=== PATIENT | female | born 1950 | race Caucasian/White ===

== ENCOUNTER 2021-10-30 07:01 | Outpatient (CLI) | payer MEDICARE | END 2021-10-30 07:02 | disposition critical access hospital (66) | LOC: EMS 07:01 | DX: R53.1 Weakness (principal); R27.9 Unspecified lack of coordination; I10 Essential (primary) hypertension | CPT/HCPCS: A0425; A0427 ==

== ENCOUNTER 2021-10-30 07:15 | Observation (INO) | payer MEDICARE, OTHER ==
[2021-10-30] MEDS ORDERED: SODIUM CHLORIDE 0.9% 1,000 ML IV STA (07:23)
--- NOTE | 2021-10-30 07:24 | ED Physician Documentation ---
PD HPI FOCAL NEURO - Stated complaint Stated Complaint: CODE STROKE - History obtained from History obtained from: Patient, EMS - History of Present Illness Timing - onset: How many hours ago (06/22), Last night (2 am She woke up to go to the bathroom and noted some feeling of weakness in the right arm and leg. She went back to sleep and it was still present upon awakening this morning.) Timing - duration: Hours (06/22) Timing - details: Abrupt onset, Still present Severity of deficit: Mild Weakness: Arm, Leg, Right. No: Face Numbness: No: Face, Arm, Leg Associated symptoms: No: Headache, Nausea / vomiting, Fall, Head injury Contributing factors: negative: Anticoagulated, Atrial fibrillation Baseline status: positive: A&OX3, ambulatory, indep Similar symptoms before: Has not had sx before Recently seen: Not recently seen Review of Systems Constitutional: denies: Fever, Chills Nose: denies: Rhinorrhea / runny nose, Congestion Throat: denies: Sore throat Cardiac: denies: Chest pain / pressure, Palpitations, Pedal edema, Calf pain Respiratory: denies: Cough, Wheezing GI: denies: Abdominal Pain, Nausea, Vomiting Musculoskeletal: denies: Neck pain, Back pain Neurologic: reports: Focal weakness, Altered mental status (somewhat slow to answer questions per family.). denies: Generalized weakness, Numbness, Confused, Headache, Head injury PD PAST MEDICAL HISTORY - Past Medical History Cardiovascular: Hypertension (but no current medications) Respiratory: None Neuro: None Endocrine/Autoimmune: None Musculoskeletal: None - Present Medications Home Medications: Ambulatory Orders Medication Instructions Recorded Confirmed No Known Home Medications 10/30/21 10/30/21 - Allergies Allergies/Adverse Reactions: Allergies Allergy/AdvReac Type Severity Reaction Status Date / Time No Known Drug Allergies Allergy Verified 10/30/21 07:24 PD ED PE NORMAL - Vitals Vital signs reviewed: Yes - General General: Alert and oriented X 3, No acute distress, Well developed/nourished - HEENT HEENT: PERRL, EOMI, Moist mucous membranes, Pharynx benign - Neck Neck: Supple, no meningeal sign, No adenopathy, No bruit - Cardiac Cardiac: RRR (mild tachycardia), No murmur - Respiratory Respiratory: Clear bilaterally - Abdomen Abdomen: Soft, Non tender - Derm Derm: Normal color, Warm and dry - Extremities Extremities: No tenderness to palpate, Normal ROM s pain, No edema, No calf tenderness / cord - Neuro Neuro: Alert and oriented X 3, 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, No sensory deficit, Normal speech, Other (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.) Eye Opening: Spontaneous Motor: Obeys Commands Verbal: Oriented GCS Score: 15 NIHSS - Level of Consciousness Level of consciousness: (0) Alert, Keenly responsive LOC Questions: (0) Answers both Q's correct LOC Commands: (0) Performs both correctly - Gaze Best Gaze: (0) Normal - Visual Visual: (0) No loss - Facial Palsy Facial Palsy: (0) Normal, symmetrical movement - Motor Arms (both separate) Motor Arm (right): (1) Drift (very slight) Motor Arm (left): (0) No drift - Motor Legs (both separate) Motor Leg (right): (1) Drift (very slight) Motor Leg (left): (0) No drift - Limb Ataxia Limb Ataxia: (0) Absent - Sensory Sensory: (0) Normal - Best Language Best Language: (0) No aphasia - Dysarthria Dysarthria: (0) Normal - Extinction and Inattention (formally neg Extinction and inattention: (0) No abnormality - Total Score/Results Total Score/Result: 2 Results - Vitals Vitals: Vital Signs - 24 hr 10/30/21 10/30/21 10/30/21 07:19 07:36 08:22 Temperature 36.4 C L Heart Rate 110 H 93 107 H Respiratory 16 15 23 Rate Blood Pressure 165/112 H 159/63 H 153/74 H O2 Saturation 99 97 98 10/30/21 10/30/21 10/30/21 09:08 09:30 10:00 Temperature Heart Rate 101 H 93 96 Respiratory 20 14 17 Rate Blood Pressure 175/79 H 153/65 H 156/76 H O2 Saturation 97 97 96 10/30/21 10/30/21 10/30/21 10:30 11:00 11:30 Temperature Heart Rate 101 H 102 H 106 H Respiratory 20 14 13 Rate Blood Pressure 157/71 H 168/72 H 149/83 H O2 Saturation 98 96 97 10/30/21 10/30/21 10/30/21 12:30 13:00 13:30 Temperature Heart Rate 99 98 100 Respiratory 16 Rate Blood Pressure 148/90 H 161/88 H 151/91 H O2 Saturation 97 95 94 Oxygen O2 Source Room air - EKG (time done) 07:45 Rate: Rate (enter#) (93) Rhythm: NSR Intervals: LBBB QRS: LVH - Labs Labs: Laboratory Tests 10/30/21 10/30/21 10/30/21 07:23 07:23 07:23 WBC 7.8 RBC 4.52 Hgb 14.3 Hct 42.1 MCV 93.1 MCH 31.6 H MCHC 34.0 RDW 13.1 Plt Count 259 MPV 8.2 Neut # (Auto) 4.8 Lymph # (Auto) 1.8 [place] # (Auto) 0.8 Eos # (Auto) 0.3 Baso # (Auto) 0.1 Absolute Nucleated RBC 0.00 Nucleated RBC % 0.0 PT 11.3 INR 1.0 Sodium 136 Potassium 4.1 Chloride 102 Carbon Dioxide 25 Anion Gap 9.0 BUN 30 H Creatinine 0.6 Estimated GFR (MDRD) 99 Glucose 110 H Calcium 9.9 Magnesium 2.1 Total Bilirubin 0.7 AST 31 ALT 31 Alkaline Phosphatase 56 Total Protein 7.6 Albumin 4.3 Globulin 3.3 Albumin/Globulin Ratio 1.3 Lipase 36 - Rads (name of study) head/neck angio Radiology: Prelim report reviewed (no acute abnormality. Less than 50% stenoses at carotids. ), See rad report brain MRI Radiology: Prelim report reviewed (small lacunar infarct with edema left caudate nucleus in deep periventricular white matter. ), See rad report PD MEDICAL DECISION MAKING - ED course Complexity details: reviewed results (CT and CT angios of the head and neck are without any acute obvious abnormality nor stenoses. Concern would be for worse mall stroke versus stroke mimic. She is out of the timeframe for thrombolytics and does not have a large vessel occlusion. This point I would get an MRI brain to better eval.), considered differential (Onset of a feeling of right-sided weakness arm and leg. Does not demonstrate significant weakness but very subtle. Slightly slow answering questions but no dysarthria or dysphonia per se. Very minimal symptoms.), d/w patient ED course: Brain MRI does show a small lacunar infarct in the left deep periventricular white matter. No bleed. Reevaluation shows still minimal drift or weakness on the right arm and leg. However we have not assessed gait or swallow. She is able to speak clearly and no facial droop. Concern would be for worsening symptoms given some mild edema on MRI. I talked with the hospitalist who did agree to have the patient in observation on telemetry and also watching blood pressure. Departure - Departure Disposition: ED Place in Observation Clinical Impression: Acute right-sided weakness, Lacunar infarct, acute, Cerebrovascular accident (CVA) Condition: Stable Record reviewed to determine appropriate education?: Yes
[2021-10-30 07:33] LABS: BASOPHILS # (AUTO) 0.1 10^3/uL (0.0-0.1); BASOPHILS % (AUTO) 0.8 %; EOSINOPHILS # (AUTO) 0.3 10^3/uL (0.0-0.7); EOSINOPHILS % (AUTO) 3.7 %; HCT - HEMATOCRIT 42.1 % (37.0-47.0); HGB - HEMOGLOBIN 14.3 g/dL (12.0-16.0); LYMPHOCYTES # (AUTO) 1.8 10^3/uL (1.5-3.5); LYMPHOCYTES % (AUTO) 22.9 %; MEAN CORPUSCULAR HEMOGLOBIN 31.6 pg (27.0-31.0); MEAN CORPUSCULAR VOLUME 93.1 fL (81.0-99.0); MEAN PLATELET VOLUME 8.2 fL (7.9-10.8); MONOCYTES # (AUTO) 0.8 10^3/uL (0.0-1.0); MONOCYTES % (AUTO) 10.4 %; NEUTROPHILS # (AUTO) 4.8 10^3/uL (1.5-6.6); NEUTROPHILS % (AUTO) 61.9 %; PLT - PLATELET COUNT 259 10^3/uL (130-450); RED BLOOD COUNT 4.52 10^6/uL (4.20-5.40); RED CELL DISTRIBUTION WIDTH 13.1 % (12.0-15.0); WHITE BLOOD COUNT 7.8 x10^3/uL (4.8-10.8)
[2021-10-30 07:43] LABS: ALBUMIN 4.3 g/dL (3.2-5.5); ALBUMIN/GLOBULIN RATIO 1.3 (1.0-2.2); BILIRUBIN,TOTAL 0.7 mg/dL (0.2-1.0); CALCIUM 9.9 mg/dL (8.5-10.3); CREATININE 0.6 mg/dL (0.4-1.0); MAGNESIUM 2.1 mg/dL (1.7-2.8); POTASSIUM 4.1 mmol/L (3.5-5.0); TOTAL PROTEIN 7.6 g/dL (6.7-8.2)
[2021-10-30] MEDS ORDERED: IOPAMIDOL-300 100 ML VIAL IVP ONE (07:43)
[2021-10-30 07:44] LABS: PT - PROTHROMBIN TIME 11.3 secs (9.9-12.6)
--- NOTE | 2021-10-30 07:50 | CT Report ---
PROCEDURE: Head W/O Stroke Protocol INDICATIONS: right side weakness TECHNIQUE: Noncontrast 4.5 mm thick angled axial sections acquired from the foramen magnum to the vertex, with c oronal reformats. For radiation dose reduction, the following was used: automated exposure control, adjustment of mA and/or kV according to patient size. COMPARISON: FINDINGS: Image quality: Excellent. CSF spaces: Basal cisterns are patent. No extra-axial fluid collections. Ventricles are normal in size and shape. Brain: No midline shift. No intracranial masses or hemorrhage. Lara-white matter interface is norm al. Skull and face: Calvarium and visualized facial bones are intact, without suspicious lesions. Sinuses: Visualized sinuses and mastoids are clear. IMPRESSION: No evidence acute intracranial process. Above discussed with René, the healthcare coordinator working with FERNANDO NGUYEN at the time of di ctation on 10/30/2021 at 0745 hours. This study fulfills neurological imaging criteria for inclusion or exclusion of acute stroke therapie s based on available published neurological imaging guidelines. Reviewed by: Srikanth Jensen MD on 10/30/2021 7:48 AM PDT Approved by: Srikanth Jensne MD on 10/30/2021 7:48 AM PDT Station ID: [id number]
--- NOTE | 2021-10-30 08:02 | CT Report ---
PROCEDURE: ANGIO HEAD W/WO INDICATIONS: right side weakness CONTRAST: IV CONTRAST: Isovue 300 ml: 80 PO CONTRAST: *NO PO CONTRAST TECHNIQUE: Precontrast 4.5 mm thick angled axial sections acquired from the foramen magnum to the vertex. Afte r the administration of intravenous contrast, 1 mm thick sections acquired through the [place] of [place] is. Postcontrast 4.5 mm thick sections then re-acquired from the foramen magnum to the vertex. 3-di mensional vhwogdy-hnratspga-sfvcauhzzd (MIP) and/or volume rendering reformats were acquired of the c entral intracranial vasculature. For radiation dose reduction, the following was used: automated ex posure control, adjustment of mA and/or kV according to patient size. COMPARISON: CT head 10/30/2021. FINDINGS: Image quality: Excellent. Anterior circulation: Intracranial internal carotid arteries are normal in size and flow. The flow within the paired anterior cerebral arteries is normal and symmetric. The flow within the middle cer ebral arteries is normal and symmetric. The anterior communicating artery is seen. No aneurysms are seen. Posterior circulation: Visualized portions of the vertebral arteries demonstrate normal caliber, and join to form a normal appearing basilar artery. Flow within the posterior cerebral arteries is norm al and symmetric. No aneurysms are seen. Dural sinuses demonstrate normal postcontrast enhancement. CSF spaces: Ventricles are normal in size and shape. Basal cisterns are patent. No extra-axial flu id collections. Brain: No midline shift. No intracranial bleeds or masses. Lara-white matter interface appears int act. Skull and face: Calvarium and facial bones appear intact, without suspicious lesions. Sinuses: Visualized sinuses and mastoids are clear. IMPRESSION: 1. No acute intracranial disease process. 2. No large vessel occlusion, vascular stenosis, vascular dissection or aneurysm. Reviewed by: Jailene Cadena MD, PhD on 10/30/2021 8:01 AM PDT Approved by: Jailene Cadena MD, PhD on 10/30/2021 8:01 AM PDT Station ID: [id number]
--- NOTE | 2021-10-30 08:11 | CT Report ---
PROCEDURE: ANGIO NECK W INDICATIONS: right side weakness CONTRAST: IV CONTRAST: Isovue 300 ml: 80 PO CONTRAST: *NO PO CONTRAST TECHNIQUE: After the administration of intravenous contrast, 1.5 mm axial sections acquired from the aortic arch to the [place] of [place]. Coronal 3-D maximum intensity projection (MIP) and/or volume rendering ref ormats were then performed. For radiation dose reduction, the following was used: automated exposur e control, adjustment of mA and/or kV according to patient size. COMPARISON: None. FINDINGS: Image quality: Excellent. Carotid system: The great vessels demonstrate a conventional anatomy as they arise from the aortic a [facility]. The origins of the common carotid arteries appear patent. The common carotid arteries demonstr ate normal calibers. Common carotid arteries course proximally projecting the retropharyngeal space. Atherosclerotic calcifications noted in the origins of the internal carotid arteries which causes les s than 50% stenosis of the vessels. Posterior circulation: The origins of the vertebral arteries appear patent. Left vertebral artery do minance noted. The more superior portions of the vertebral arteries demonstrate normal course and sangeeta iber. They join to form a normal appearing basilar artery. Soft tissues: Visualized neck soft tissues demonstrate no suspicious abnormalities. The thyroid is normal in size and there are no incidental findings. Biapical lung pleural-parenchymal scarring. Bones: No suspicious bony lesions. Spine degenerative disc disease and facet arthropathy are noted. Visualized cervical spine appears normally aligned. IMPRESSION: 1. Less than 50% stenosis of the origins of the internal carotid arteries. 2. Vertebral arteries are fully patent. The estimate of stenosis included in the report of the imaging study was calculated using the NASCET method Reviewed by: Jailene Cadena MD, PhD on 10/30/2021 8:09 AM PDT Approved by: Jailene Cadena MD, PhD on 10/30/2021 8:09 AM PDT Station ID: [id number]
--- NOTE | 2021-10-30 12:52 | MRI Report ---
PROCEDURE: Brain W/O INDICATIONS: feeling right sided weakness TECHNIQUE: Noncontrast axial T1 spin echo, axial T2 fast spin echo, sagittal and axial FLAIR, coronal T2 fast sp in echo, axial gradient echo, axial diffusion and ADC through the brain. COMPARISON: None. FINDINGS: Image quality: Excellent. CSF Spaces: Basal cisterns are patent. No extra-axial fluid collections. Ventricles are normal in size and shape. Brain: No intracranial masses or hemorrhage. Lara/white matter interface is normal. Brainstem appe ars normal. Diffusion-weighted images demonstrate acute lacunar infarction centered in the left periv entricular deep white matter extending to the body of the left caudate. There is subtle associated cy totoxic edema. No mass effect on the lateral ventricle. No other areas of acute infarct. Age-related volume loss and mild small vessel ischemic change.. No chronic ischemic insults. Normal intravascul ar flow voids are present. Skull and face: Calvarium has normal marrow signal. Orbits appear normal. Sinuses: Sinuses and mastoids are clear. IMPRESSION: 1. Small acute lacunar infarction involving the left periventricular deep white matter extending body of the left caudate. Very early subtle associated cytotoxic edema. 2. Age-related volume loss and mild small vessel ischemic change. Reviewed by: Srikanth Jensen MD on 10/30/2021 12:50 PM PDT Approved by: Srikanth Jensen MD on 10/30/2021 12:50 PM PDT Station ID: [id number]
[2021-10-30] MEDS ORDERED: ASPIRIN CHEW 81 MG TABLET PO STA (13:28)
[2021-10-30] MEDS ORDERED: SODIUM CHLORIDE FLUSH 0.9% 10 ML SYRINGE IVP PRN (13:49)
[2021-10-30] MEDS ORDERED: ACETAMINOPHEN 325 MG TABLET PO PRN (13:49)
[2021-10-30] MEDS ORDERED: ONDANSETRON 4 MG/2 ML VIAL IVP PRN (13:49)
--- NOTE | 2021-10-30 13:55 | HISTORY & PHYSICAL EXAMINATION ---
Chief Complaint - Chief Complaint Chief Complaint: right side weakness History of Present Illness - Admitted From Admitted From:: medical floor - History Obtained From Records Reviewed: [employer], and ER notes History obtained from: pt Exam Limitations: no - History of Present Illness HPI Comment/Other: This is a 71-years old female with a past medical history significantly on hypertension without medications at home, who present ER complain of right sise weakness. Pt reports she woke up at 0200, she was feeling weaker on the right side. she report she walks slower than usually, feel weakness on upper extremity, and slow and mild slurred speech as well. Pt denies vision changes, or headache. she report she has no issue for swallowing. She denies chest pain, shortness of breath as well. CT of head, CTA of head and neck reveals unremarkable for acute process. MRI of brain show Small acute lacunar infarction involving the left periventricular deep white matter extending body of left caudate, very early subtle associated cytotoxic edema. Routine laboratory tests that show unremarkable. Given pt's above medical conditions, medical team was consulted for admission Discussed the care goal with the patient, patient hope to have DNR/DNI History - Family & Social History Family History: Mother: , Father: Family History Comment/Other: Patient report she was unknow about her father medical history, he at age 75. 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 denies: Fever, Chills - Eyes Eyes: denies: Pain, Blurred vision, Field loss, Vision loss, Dipolpia - Ears, Nose & Throat Ears, Nose & Throat: denies: Ear pain - Cardiovascular Cariovascular: denies: Chest pain, Exertional dyspnea, Decr. exercise tolerance - Respiratory Respiratory: denies: Cough, SOB at rest, SOB with exertion - Gastrointestinal Gastrointestinal: denies: Abdominal pain, Diarrhea, Nausea, Vomiting - Genitourinary Genitourinary: denies: Dysuria - Musculoskeletal Musculoskeletal: denies: Muscle pain - Neurological Neurological: reports: Focal weakness, Abnormal gait, Slurred speech. denies: Headache, Dizziness, Numbness, Seizures Prior Level of Functionality: Independent at home Exam - Vital Signs Vital Signs: Vital Signs x48h Temp Pulse Resp BP Pulse Ox 10/30/21 13:00 98 161/88 H 95 10/30/21 12:30 99 148/90 H 97 10/30/21 11:30 106 H 13 149/83 H 97 10/30/21 11:00 102 H 14 168/72 H 96 10/30/21 10:30 101 H 20 157/71 H 98 10/30/21 10:00 96 17 156/76 H 96 10/30/21 09:30 93 14 153/65 H 97 10/30/21 09:08 101 H 20 175/79 H 97 10/30/21 08:22 107 H 23 153/74 H 98 10/30/21 07:36 93 15 159/63 H 97 10/30/21 07:19 36.4 C L 110 H 16 165/112 H 99 - Physical Exam General Appearance: positive: No acute distress, Alert. negative: Lethargic Eyes Bilateral: positive: Normal inspection, No lid inflammation ENT: positive: ENT inspection nml, No signs of dehydration. negative: Purulent nasal drainage Neck: positive: Nml inspection, Trachea midline. negative: Tracheal deviation Respiratory: positive: Chest non-tender, No respiratory distress, Breath sounds nml. negative: Wheezes, Rales Cardiovascular: positive: Regular rate & rhythm. negative: Tachycardia, Lb cardia, Systolic murmur Peripheral Pulses: positive: 2+ Abdomen: positive: Non-tender, Nml bowel sounds, No distention. negative: Tenderness Back: positive: Nml inspection Skin: positive: Color nml, Warm, Dry. negative: Cyanosis Extremities: positive: Non-tender, Nml appearance Neurologic/Psychiatric: positive: Oriented x3, Sensation nml, Weakness, Slurred/abnml speech. negative: Sensory loss, Facial droop, Depressed mood/affect Sepsis Event Note (H) - Evaluation Current Stage of Sepsis: Ruled out Conclusion/Plan - Problem List (1) Cerebrovascular accident (CVA) Conclusion/Plan: pt present mild right side extremities weakness and mild to moderate slurred speech. MRI of brain reveal Small acute lacunar infarction involving the left periventricular deep white matter extending body of left caudate, very early subtle associated cytotoxic edema. pt has hx of HTN but without medication control. Plan: order lipid panel, ER already give pt Aspirin, we will continue Aspirin, add Lipitor. hold BP medication for pt now and let her BP rise for her acute stroke, continue vital sign monitor for pt. neuro check for pt since MRI of brain show very early subtle associated cytotoxic edema, order PT and OT evaluation and treatment for patient. (2) HTN (hypertension) Conclusion/Plan: pt has slight elevated BP, but pt also present stroke, hold BP meds now. we will continue vital sign monitor for pt - Lab Results Fish Bones: 10/30/21 07:23 10/30/21 07:23 Core Measures - Anticipated LOS I expect patient to be DC'd or transferred within 96 hours.: Yes - DVT/VTE - Prophylaxis VTE/DVT Device ordered at admit?: Yes VTE/DVT Prophylaxis med ordered at admit?: Yes
[2021-10-30 14:50] LABS: CORONAVIRUS 229E-RESP PCR NOT DETECTED; CORONAVIRUS HKU1-RESP PCR NOT DETECTED; CORONAVIRUS NL63-RESP PCR NOT DETECTED; CORONAVIRUS OC43-RESP PCR NOT DETECTED; HUMAN METAPNEUMOVIRUS NOT DETECTED; INFLUENZA A- RESP PCR PANEL NOT DETECTED; RHINOVIRUS/ENTEROVIRUS NOT DETECTED; SARS-CoV-2 -RESP PCR PANEL NOT DETECTED
[2021-10-30 14:51] LABS: B. PARAPERTUSSIS- RESP PCR PAN NOT DETECTED; B. PERTUSSIS- RESP PCR PANEL NOT DETECTED; C. PNEUMONIAE- RESP PCR PANEL NOT DETECTED; INFLUENZA B - RESP PCR PANEL NOT DETECTED; M. PNEUMONIAE- RESP PCR PANEL NOT DETECTED; PARAINFLUENZA VIRUS 1 NOT DETECTED; PARAINFLUENZA VIRUS 2 NOT DETECTED; PARAINFLUENZA VIRUS 3 NOT DETECTED; PARAINFLUENZA VIRUS 4 NOT DETECTED; RSV- RESP PCR PANEL NOT DETECTED
[2021-10-30] MEDS ORDERED: ATORVASTATIN 40 MG TABLET PO SCH (21:00)
[2021-10-30] MEDS: SODIUM CHLORIDE FLUSH 0.9% 10 ML SYRINGE IVP SCH (21:00)
[2021-10-31] MEDS: SODIUM CHLORIDE FLUSH 0.9% 10 ML SYRINGE IVP SCH ×2 (02:20→08:52)
[2021-10-31 05:48] LABS: BASOPHILS % (AUTO) 0.6 %; EOSINOPHILS # (AUTO) 0.3 10^3/uL (0.0-0.7); EOSINOPHILS % (AUTO) 4.3 %; HCT - HEMATOCRIT 38.2 % (37.0-47.0); HGB - HEMOGLOBIN 12.9 g/dL (12.0-16.0); LYMPHOCYTES # (AUTO) 1.7 10^3/uL (1.5-3.5); LYMPHOCYTES % (AUTO) 26.6 %; MEAN CORPUSCULAR HEMOGLOBIN 31.6 pg (27.0-31.0); MEAN CORPUSCULAR HGB CONC 33.8 g/dL (32.0-36.0); MEAN CORPUSCULAR VOLUME 93.6 fL (81.0-99.0); MONOCYTES # (AUTO) 0.7 10^3/uL (0.0-1.0); MONOCYTES % (AUTO) 11.4 %; NEUTROPHILS # (AUTO) 3.6 10^3/uL (1.5-6.6); NEUTROPHILS % (AUTO) 56.9 %; PLT - PLATELET COUNT 228 10^3/uL (130-450); RED BLOOD COUNT 4.08 10^6/uL (4.20-5.40); RED CELL DISTRIBUTION WIDTH 13.4 % (12.0-15.0); WHITE BLOOD COUNT 6.3 x10^3/uL (4.8-10.8)
[2021-10-31 06:00] LABS: CALCIUM 9.3 mg/dL (8.5-10.3); CREATININE 0.6 mg/dL (0.4-1.0); POTASSIUM 4.1 mmol/L (3.5-5.0)
[2021-10-31 06:18] LABS: CHOL/HDL RATIO 2.5 (<4.4); CHOLESTEROL 191 mg/dL; HDL CHOLESTEROL 77 mg/dL; TRIGLYCERIDES 31 mg/dL
[2021-10-31] MEDS ORDERED: ENOXAPARIN 40 MG/0.4 ML SYRINGE SUBQ SCH (09:00)
[2021-10-31] MEDS ORDERED: ASPIRIN CHEW 81 MG TABLET PO SCH (09:00)
--- NOTE | 2021-10-31 10:48 | PHARMACY PROGRESS NOTE ---
- Best Possible Medication History Admit Date and Time: 10/30/21 1347 Processed by: Nursing Medication History completed: Yes Patient Interview: Pt interview ONLY source As the person ultimately responsible for medication therapy, providers are able to order a medication from an existing home medication list in [facility] via the "Reconcile Routine" prior to Confirmation of that medication by credit support specialist. Such practice is discouraged except when the physician, in their clinical judgment, deems that a medical need exists for a medication without regard to previous use.
--- NOTE | 2021-10-31 11:13 | Discharge Plan ---
Discharge Plan Problem Reviewed?: Yes Disposition: Home Health Service Condition: Stable Prescriptions: Atorvastatin [Lipitor] 40 mg PO QPM #30 tablet Aspirin Chewable [St Mikey Aspirin] 81 mg PO DAILY #30 tablet Diet: Regular Activity Restrictions: Activity as Tolerated Shower Restrictions: No (fall prevention) Assistance Devices: Cane Instruction Topics: Stroke Sx, Stroke Ischemic, Aspirin ASA chewable tablets, Atorvastatin tablets Health Concerns: stroke Plan of Treatment: You were found to have stroke. MRI of brain reveal small size of stroke at your left brain, and you presented mild weakness at your right side and mild slurred speech and mild facial droop. You are prescribed aspirin and Lipitor medications. You may followup with your PCP to have ECHO study as well. feed elevator worker help arrange PCP and home health PT/OT/ST for you, you may followup with neurologist as out-pt setting. Care Goals: Stabilization and improvement of your stroke medical condition Assessment: Discussed the care plan with you, answered your questions. you understood Additional Instructions or Follow Up instructions: You may follow-up with your PCP in the next week. should your symptoms return or worsen, you may present to the ER or call 911 for help Follow-Up Care: Home Health - PT, Home Health - OT, Home Health - ST No Smoking: If you smoke, Please STOP! Call for help.
--- NOTE | 2021-10-31 11:22 | DISCHARGE SUMMARY ---
Discharge Summary Admit Date: 10/30/21 Discharge Date: 10/31/21 Discharging Provider: Silas Garcia Primary Care Provider: no PCP now, soical worker help you arrange PCP for you Code Status: Do Not Attempt Resuscitation Condition at Discharge: Stable Discharge Disposition: Home Health Service Discharge Facility Name: home - DIAGNOSES Discharge Diagnoses with Status of Each Condition: (1) Cerebrovascular accident (CVA) stable. pt present mild right side extremities weakness, and mild slurred speech and facial droop. pt reserve normal swallowing pattern. MRI of brain reveal Small acute lacunar infarction involving the left periventricular deep white matter extending body of left caudate. pt had PT/OT evaluation and treatment. pt is recommended home health PT/OT. pt is prescribed Aspirin and Lipitor. (2) HTN (hypertension) stable. No medication is needed now. pt may continue followup with her PCP for further monitor. - HPI History of Present Illness: This is a 71-years old female with a past medical history significantly on h ypertension without medications at home, who present ER complain of right sise weakness. Pt reports she woke up at 0200, she was feeling weaker on the right side. she report she walks slower than usually, feel weakness on upper extremity, and slow and mild slurred speech as well. Pt denies vision changes, or headache. she report she has no issue for swallowing. She denies chest pain, shortness of breath as well. CT of head, CTA of head and neck reveals unremarkable for acute process. MRI of brain show Small acute lacunar infarction involving the left periventricular deep white matter extending body of left caudate, very early subtle associated cytotoxic edema. Routine laboratory tests that show unremarkable. Given pt's above medical conditions, medical team was consulted for admission Discussed the care goal with the patient, patient hope to have DNR/DNI - ALLERGIES Allergies/Adverse Reactions: Allergies Allergy/AdvReac Type Severity Reaction Status Date / Time No Known Drug Allergies Allergy Verified 10/30/21 07:24 - MEDICATIONS Home Medications: Ambulatory Orders Medication Instructions Recorded Confirmed Aspirin Chewable [St Mikey 81 mg PO DAILY #30 tablet 10/31/21 Aspirin] Atorvastatin [Lipitor] 40 mg PO QPM #30 tablet 10/31/21 - PHYSICAL EXAM AT DISCHARGE General Appearance: positive: No acute distress, Alert. negative: Lethargic Eyes Bilateral: positive: Normal inspection, No lid inflammation ENT: positive: ENT inspection nml, No signs of dehydration. negative: Purulent nasal drainage Neck: positive: Nml inspection, Trachea midline. negative: Tracheal deviation Respiratory: positive: Chest non-tender, No respiratory distress, Breath sounds nml. negative: Wheezes, Rales Cardiovascular: positive: Regular rate & rhythm. negative: Tachycardia, Bradycardia, Systolic murmur Peripheral Pulses: positive: 2+ Abdomen: positive: Non-tender, Nml bowel sounds, No distention. negative: Tenderness Back: positive: Nml inspection Skin: positive: Color nml, Warm, Dry. negative: Cyanosis Extremities: positive: Non-tender, Nml appearance Neurologic/Psychiatric: positive: Oriented x3, Sensation nml, Weakness, Facial droop, Slurred/abnml speech, Other. negative: Sensory loss, Depressed mood/affect (pt present mild weakness on right upper and lower extremities. ) - LABS Result Diagrams: 10/31/21 05:40 10/31/21 05:40 - SEPSIS Current Stage of Sepsis: Ruled out - FOLLOW UP Follow Up: You were found to have stroke. MRI of brain reveal small size of stroke at your left brain, and you presented mild weakness at your right side and mild slurred speech and mild facial droop. You are prescribed aspirin and Lipitor medi cations. You may followup with your PCP to have ECHO study as well. caseworker protective services help arrange PCP and home health PT/OT/ST for you, you may followup with neurologist as out-pt setting. You may follow-up with your PCP in the next week. should your symptoms return or worsen, you may present to the ER or call 911 for help - TIME SPENT Time Spent in Discharge (Minutes): 30
[2021-10-31 12:42] VITALS: BP 135/71
== END 2021-10-31 14:05 | disposition home health service (06) ==
LOC: EDUNIT# → ED 07:15 → MS2 13:49
PROVIDERS: ADMIT Nurse Practitioner Gerontology; ATTEND Nurse Practitioner Gerontology
DX: I63.81 Other cerebral infarction due to occlusion or stenosis of small artery (principal); G81.91 Hemiplegia, unspecified affecting right dominant side; R47.81 Slurred speech; I10 Essential (primary) hypertension; R29.702 NIHSS score 2; R29.810 Facial weakness; Z20.822 Contact with and (suspected) exposure to COVID-19; Z66 Do not resuscitate
CPT/HCPCS: 36415; 80048; 80053; 80061; 83690; 83721; 83735; 85025; 85610; 87633; 93005; 96372; 99284

== ENCOUNTER 2021-11-19 12:19 | Outpatient (CLI) | payer MEDICARE | END 2021-11-19 12:20 | disposition home or self-care (01) | LOC: DI 12:19 | PROVIDERS: ATTEND Nurse Practitioner Family | DX: I63.9 Cerebral infarction, unspecified (principal); I10 Essential (primary) hypertension | CPT/HCPCS: 93306 ==

== ENCOUNTER 2022-10-15 09:46 | Outpatient (CLI) | payer MEDICARE ==
[2022-10-15 12:57] LABS: ALBUMIN 4.2 g/dL (3.2-5.5); ALBUMIN/GLOBULIN RATIO 1.4 (1.0-2.2); ALKALINE PHOSPHATASE 56 IU/L (42-121); ALT ALANINE AMINOTRANSFERASE 41 IU/L (10-60); AST ASPARTATE AMINOTRANSFERASE 36 IU/L (10-42); BILIRUBIN,TOTAL 0.9 mg/dL (0.2-1.0); BUN - BLOOD UREA NITROGEN 44 mg/dL (6-20); CARBON DIOXIDE - CO2 29 mmol/L (21-32); CHLORIDE 106 mmol/L (101-111); CHOL/HDL RATIO 1.7 (<4.4); CHOLESTEROL 143 mg/dL; CREATININE 0.9 mg/dL (0.4-1.0); GFR - MDRD 62 (>89); GLUCOSE 93 mg/dL (70-100); HDL CHOLESTEROL 86 mg/dL; POTASSIUM 4.7 mmol/L (3.5-5.0); SODIUM 140 mmol/L (135-145); TOTAL PROTEIN 7.3 g/dL (6.7-8.2); TRIGLYCERIDES 13 mg/dL
== END 2022-10-15 09:47 | disposition home or self-care (01) ==
LOC: LAB.N 09:46
PROVIDERS: ATTEND Nurse Practitioner Family
DX: I10 Essential (primary) hypertension (principal); Z79.899 Other long term (current) drug therapy
CPT/HCPCS: 36415; 80053; 80061; 83721

== ENCOUNTER 2022-10-16 17:27 | Outpatient (CLI) | payer MEDICARE ==
[2022-10-16 20:48] LABS: BASOPHILS % (AUTO) 0.6 %; EOSINOPHILS # (AUTO) 0.3 10^3/uL (0.0-0.7); EOSINOPHILS % (AUTO) 4.6 %; HCT - HEMATOCRIT 37.7 % (37.0-47.0); HGB - HEMOGLOBIN 12.5 g/dL (12.0-16.0); LYMPHOCYTES # (AUTO) 2.1 10^3/uL (1.5-3.5); LYMPHOCYTES % (AUTO) 30.8 %; MEAN CORPUSCULAR HGB CONC 33.2 g/dL (32.0-36.0); MEAN CORPUSCULAR VOLUME 93.5 fL (81.0-99.0); MONOCYTES # (AUTO) 0.8 10^3/uL (0.0-1.0); MONOCYTES % (AUTO) 11.8 %; NEUTROPHILS # (AUTO) 3.5 10^3/uL (1.5-6.6); NEUTROPHILS % (AUTO) 51.9 %; PLT - PLATELET COUNT 256 10^3/uL (130-450); RED BLOOD COUNT 4.03 10^6/uL (4.20-5.40); RED CELL DISTRIBUTION WIDTH 12.6 % (12.0-15.0); WHITE BLOOD COUNT 6.7 x10^3/uL (4.8-10.8)
== END 2022-10-16 17:28 | disposition home or self-care (01) ==
LOC: LAB.N 17:27
PROVIDERS: ATTEND Nurse Practitioner Family
DX: I10 Essential (primary) hypertension (principal); Z79.899 Other long term (current) drug therapy
CPT/HCPCS: 36415; 85025

== ENCOUNTER 2023-08-16 09:41 | Outpatient (CLI) | payer MEDICARE ==
--- NOTE | 2023-08-17 09:45 | DEXA Report ---
PROCEDURE: Dexa Spine and/or Hip INDICATIONS: POST MENOPAUSAL TECHNIQUE: Dual energy x-ray absorptiometry (DXA) was performed on a ITS KO[employer] System. Regions measur ed are the AP Spine, femoral neck, and if needed forearm. COMPARISON: None FINDINGS: Lumbar Spine: Bone Mineral Density: 0.795 g/cm/cm,T score: -3.2. Left Femoral Neck: Bone Mineral Density: 0.635 g/cm/cm, T score: -2.9. Left Hip: Bone Mineral Density: 0.750 g/cm/cm,T score: -2.0. (T score greater or equal to -1.0: NORMAL) (T score from -1.1 to -2.4: OSTEOPENIA) (T score less than or equal to -2.5 to: OSTEOPOROSIS) Impression: By WHO criteria, this patient has osteoporosis within the lumbar spine and femoral neck as well as mo derate osteopenia in the left hip. Patients with diagnosis of osteoporosis or osteopenia should have regular bone mineral density assess ment. For those eligible for Medicare, routine testing is allowed once every 2 years. Testing frequ ency can be increased for patients who have rapidly progressing disease or for those who are receivin g medical therapy to restore bone mass. Reviewed by: Alka Schwartz MD on 08/17/2023 9:43 AM PST Approved by: Alka Schwartz MD on 08/17/2023 9:43 AM PST Station ID: [id number]
== END 2023-08-16 09:42 | disposition home or self-care (01) ==
LOC: DI 09:41
PROVIDERS: ATTEND Nurse Practitioner Family
DX: M81.0 Age-related osteoporosis without current pathological fracture (principal); Z78.0 Asymptomatic menopausal state

== ENCOUNTER 2023-11-27 12:55 | Emergency (ER) | payer MEDICARE ==
[2023-11-27 13:31] VITALS: O2SAT 97
[2023-11-27 13:49] LABS: BASOPHILS # (AUTO) 0.1 10^3/uL (0.0-0.1); BASOPHILS % (AUTO) 0.7 %; EOSINOPHILS # (AUTO) 0.2 10^3/uL (0.0-0.7); EOSINOPHILS % (AUTO) 2.4 %; HCT - HEMATOCRIT 41.2 % (37.0-47.0); HGB - HEMOGLOBIN 13.3 g/dL (12.0-16.0); LYMPHOCYTES # (AUTO) 1.5 10^3/uL (1.5-3.5); LYMPHOCYTES % (AUTO) 18.3 %; MEAN CORPUSCULAR HEMOGLOBIN 30.8 pg (27.0-31.0); MEAN CORPUSCULAR HGB CONC 32.3 g/dL (32.0-36.0); MEAN CORPUSCULAR VOLUME 95.4 fL (81.0-99.0); MEAN PLATELET VOLUME 8.2 fL (7.9-10.8); MONOCYTES # (AUTO) 0.8 10^3/uL (0.0-1.0); MONOCYTES % (AUTO) 10.1 %; NEUTROPHILS # (AUTO) 5.7 10^3/uL (1.5-6.6); NEUTROPHILS % (AUTO) 68.3 %; PLT - PLATELET COUNT 279 10^3/uL (130-450); RED BLOOD COUNT 4.32 10^6/uL (4.20-5.40); RED CELL DISTRIBUTION WIDTH 12.8 % (12.0-15.0); WHITE BLOOD COUNT 8.3 x10^3/uL (4.8-10.8)
[2023-11-27 14:10] LABS: ALBUMIN 4.2 g/dL (3.2-5.5); ALBUMIN/GLOBULIN RATIO 1.4 (1.0-2.2); BILIRUBIN,TOTAL 0.6 mg/dL (0.2-1.0); CALCIUM 10.1 mg/dL (8.5-10.3); CREATININE 0.8 mg/dL (0.6-1.3); POTASSIUM 4.2 mmol/L (3.5-4.5); TOTAL PROTEIN 7.2 g/dL (6.4-8.9)
[2023-11-27 14:12] LABS: TROPONIN I HIGH SENSITIVITY 9.9 ng/L (2.3-14.8)
--- NOTE | 2023-11-27 14:14 | XRAY Report ---
PROCEDURE: Chest 1V INDICATIONS: Chest pain TECHNIQUE: One view of the chest was acquired. COMPARISON: None. FINDINGS: Surgical changes and devices: None. Lungs and pleura: No pleural effusions or pneumothorax. Lungs are clear. Probable small-moderate hi atal hernia. Mediastinum: Mediastinal contours appear normal. Heart size is normal. Bones and chest wall: No suspicious bony lesions. Overlying soft tissues appear unremarkable. IMPRESSION: No acute cardiopulmonary process. Suspected [id number] hiatal hernia. Reviewed by: Chester Corrales MD on 11/27/2023 2:13 PM PDT Approved by: Chester Corrales MD on 11/27/2023 2:13 PM PDT Station ID: [id number]
--- NOTE | 2023-11-27 15:12 | ED Physician Documentation ---
History of Present Illness - Stated complaint Stated Complaint: SOA,HEART BURN - Chief complaint Chief Complaint: Cardiac - History obtained from History obtained from: Patient - History of Present Illness Timing: Today Pain level max: 3 Pain level now: 0 - Additonal information Additional information: Patient is a 73-year-old female who states that earlier today she took a vitamin and ate a pretzel. She states that she felt like it got stuck in her esophagus and she had pressure buildup in her esophagus, felt like she could not catch her breath for a second and then the symptoms resolved. She states she had slight pressure in her stomach/lower chest for about 20 minutes after the event. Currently asymptomatic. Has not had similar symptoms previously. No cough or congestion. No fevers. No chills. No history of ACS. No vomiting or diarrhea. No constipation. No abdominal pain currently. Review of Systems Constitutional: denies: Fever, Chills Nose: denies: Rhinorrhea / runny nose, Congestion Throat: denies: Sore throat Cardiac: denies: Palpitations Respiratory: denies: Dyspnea, Cough GI: denies: Vomiting, Diarrhea Skin: denies: Rash Musculoskeletal: denies: Neck pain, Back pain Neurologic: denies: Headache PD PAST MEDICAL HISTORY - Past Medical History Cardiovascular: Hypertension Respiratory: None Neuro: None Endocrine/Autoimmune: None GI: GERD Musculoskeletal: None - Past Surgical History Past Surgical History: No - Present Medications Home Medications: Ambulatory Orders Medication Instructions Recorded Confirmed Aspirin Chewable [St Mikey 81 mg PO DAILY #30 tablet 10/31/21 Aspirin] Atorvastatin [Lipitor] 40 mg PO QPM #30 tablet 10/31/21 - Allergies Allergies/Adverse Reactions: Allergies Allergy/AdvReac Type Severity Reaction Status Date / Time Penicillins Allergy Unknown Verified 11/27/23 13:24 - Social History Does the pt smoke?: No Smoking Status: Never smoker Does the pt drink ETOH?: No Does the pt have substance abuse?: No PD ED PE NORMAL - Vitals Vital signs reviewed: Yes - General General: Alert and oriented X 3, No acute distress - HEENT HEENT: PERRL, Moist mucous membranes - Neck Neck: Supple, no meningeal sign - Cardiac Cardiac: RRR, Strong equal pulses - Respiratory Respiratory: No respiratory distress, Clear bilaterally - Abdomen Abdomen: Soft, Non tender, Non distended - Back Back: No CVA TTP, No spinal TTP - Derm Derm: Warm and dry - Extremities Extremities: No edema - Neuro Neuro: Alert and oriented X 3 - Psych Psych: Normal mood, Normal affect Results - Vitals Vitals: Vital Signs - 24 hr 11/27/23 13:17 Temperature 37.0 C Heart Rate 83 Respiratory 20 Rate Blood Pressure 138/77 H O2 Saturation 97 Oxygen O2 Source Room air - EKG (time done) 1327 EKG releavant findings:: EKG personally interpreted by author of this note. Relevant findings are: Rate: Rate (enter#) (73) Rhythm: NSR Intervals: Normal DC, LBBB - Labs Labs: Laboratory Tests 11/27/23 11/27/23 13:45 13:45 WBC 8.3 RBC 4.32 Hgb 13.3 Hct 41.2 MCV 95.4 MCH 30.8 MCHC 32.3 RDW 12.8 Plt Count 279 MPV 8.2 Neut # (Auto) 5.7 Lymph # (Auto) 1.5 Cooper # (Auto) 0.8 Eos # (Auto) 0.2 Baso # (Auto) 0.1 Absolute Nucleated RBC 0.00 Nucleated RBC % 0.0 Sodium 138 Potassium 4.2 Chloride 103 Carbon Dioxide 31 Anion Gap 4.0 L BUN 28 H Creatinine 0.8 Estimated GFR (MDRD) 70 L Glucose 96 Calcium 10.1 Total Bilirubin 0.6 AST 27 ALT 29 Alkaline Phosphatase 56 Troponin I High Sens 9.9 Total Protein 7.2 Albumin 4.2 Globulin 3.0 Albumin/Globulin Ratio 1.4 Lipase 15 - Rads (name of study) Chest x-ray Relevant Findings:: Final report received, See rad report PD Medical Decision Making - ED course Complexity details: reviewed results, re-evaluated patient, considered differential (No ST elevation NH, no aortic dissection, no PE, no tension pneumothorax, no aortic aneurysm), d/w patient ED course: 73-year-old female with what sounds like a esophageal food impaction that spontaneously resolved today. Possibly related to her hiatal hernia on chest x- ray. No acute findings on EKG. Has a left bundle branch block. High sensitive troponin is negative. Chest x-ray does not show any other acute abnormalities. Labs are otherwise unremarkable. EKG is unchanged from 10/30/2021. Asymptomatic here. Tolerating p.o. without difficulty. Handling her secretions without difficulty. Will have her follow-up with her doctor for further care and return if she worsens. Abdomen is soft, nontender nondistended. No gallbladder tenderness. Patient counseled regarding signs and symptoms for which I believe and urgent re-evaluation would be necessary. Patient with good understanding of and agreement to plan and is comfortable going home at this time This document was made in part using voice recognition software. While efforts are made to proofread this document, sound alike and grammatical errors may occur. Departure - Departure Disposition: 01 Home, Self Care Clinical Impression: Hiatal hernia Condition: Good Instructions: Hiatal Hernia Follow-Up: Paige Oliver ARNP [Primary Care Provider] - Comments: Your EKG, chest x-ray and laboratory testing did not show any acute abnormalities today. You do have a small hiatal hernia on your chest x-ray and that may have caused your symptoms today. Please follow-up with your doctor for further care and return if you worsen. There are no signs of a heart attack today. Forms: PCP List
[2023-11-27 16:04] VITALS: BP 126/74
== END 2023-11-27 15:57 | disposition home or self-care (01) ==
LOC: ED 12:55
DX: K44.9 Diaphragmatic hernia without obstruction or gangrene (principal)
CPT/HCPCS: 36415; 80053; 83690; 84484; 85025; 93005; 99283; 99284

== ENCOUNTER 2024-03-02 19:23 | Emergency (ER) | payer MEDICARE ==
[2024-03-02 19:31] VITALS: BP 157/83; O2SAT 98
--- NOTE | 2024-03-02 19:38 | ED Physician Documentation ---
PD HPI ABD PAIN - Stated complaint Stated Complaint: - Chief complaint Chief Complaint: Abd Pain - History obtained from History obtained from: Patient - Additional information Additional information: She developed difficulty urinating with a sensation of being unable to urinate this afternoon. When she finally did go it appeared normal. She has some very mild low back pain with this. She said she had similar symptoms in June and was in [place] and ended up having a kidney stone that required intervention. She denies fevers. No unilateral flank pain, just some mild low bilateral back pain. PD PAST MEDICAL HISTORY - Past Medical History Past Medical History: Yes Cardiovascular: Hypertension Respiratory: None Neuro: None Endocrine/Autoimmune: None GI: GERD Musculoskeletal: None - Past Surgical History Past Surgical History: No - Present Medications Home Medications: Ambulatory Orders Medication Instructions Recorded Confirmed Aspirin Chewable [St Mikey 81 mg PO DAILY #30 tablet 10/31/21 Aspirin] Atorvastatin [Lipitor] 40 mg PO QPM #30 tablet 10/31/21 Nitrofurantoin [Macrobid] 1 cap PO BID #10 cap 03/02/24 Phenazopyridine HCl [Pyridium] 200 mg PO TID PRN #6 tablet 03/02/24 - Allergies Allergies/Adverse Reactions: Allergies Allergy/AdvReac Type Severity Reaction Status Date / Time Penicillins Allergy Unknown Verified 03/02/24 19:27 - Social History Does the pt smoke?: No Smoking Status: Never smoker Does the pt drink ETOH?: No Does the pt have substance abuse?: No PD ED PE NORMAL - Vitals Vital signs reviewed: Yes - General General: Alert and oriented X 3, No acute distress - Abdomen Abdomen: Normal bowel sounds, Soft, Non tender - Neuro Neuro: Alert and oriented X 3 Results - Vitals Vitals: Vital Signs - 24 hr 03/02/24 19:27 Temperature 36.5 C Heart Rate 100 Respiratory 16 Rate Blood Pressure 157/83 H O2 Saturation 98 Oxygen O2 Source Room air - Labs Labs: Laboratory Tests 03/02/24 19:40 Urine Color YELLOW Urine Clarity HAZY Urine pH 6.0 Ur Specific Maurice 1.015 Urine Protein NEGATIVE Urine Glucose (UA) NEGATIVE Urine Ketones NEGATIVE Urine Occult Blood NEGATIVE Urine Nitrite POSITIVE H Urine Bilirubin NEGATIVE Urine Urobilinogen 0.2 (NORMAL) Ur Leukocyte Esterase NEGATIVE Urine RBC 0-5 Urine WBC 0-3 Ur Squamous Epith Cells RARE Squamous Urine Bacteria Moderate H Ur Microscopic Review INDICATED Urine Culture Comments INDICATED PD Medical Decision Making - ED course ED course: She presents with symptoms of cystitis. Pain is only mild and nonlateralizing so would doubt recurrent kidney stone/renal colic. Also there is no hematuria. Just nitrite and bacteriuria. Departure - Departure Disposition: 01 Home, Self Care Clinical Impression: Cystitis Condition: Good Record reviewed to determine appropriate education?: Yes Instructions: ED UTI Cystitis Female Prescriptions: Nitrofurantoin [Macrobid] 1 cap PO BID #10 cap Phenazopyridine HCl [Pyridium] 200 mg PO TID PRN #6 tablet PRN Reason: dysuria Comments: I sent your prescription electronically to [facility] in [place]. It seems to like tonight you are being treated for a bladder infection. We will culture your urine, the results should be done in 48-72 hours. If an antibiotic change is necessary we will call you. Return if worse in the meantime, especially if you develop increasing flank pain, fevers, or cannot keep down the medication. Forms: PCP List Discharge Date/Time: 03/02/24 20:17
[2024-03-02 19:59] LABS: BILIRUBIN,URINE NEGATIVE (NEGATIVE); GLUCOSE, URINE (UA) NEGATIVE (NEGATIVE); KETONES,URINE (UA) NEGATIVE (NEGATIVE); LEUKOCYTE ESTERASE, URINE NEGATIVE (NEGATIVE); NITRITE,URINE POSITIVE (NEGATIVE); OCCULT BLOOD,URINE NEGATIVE (NEGATIVE); PROTEIN,URINE NEGATIVE (NEGATIVE); UROBILINOGEN,URINE 0.2 (NORMAL) E.U./dL (NORMAL)
[2024-03-02 20:00] LABS: CLARITY,URINE HAZY (CLEAR)
[2024-03-02 20:06] LABS: BACTERIA,URINE Moderate /HPF (None Seen); RBC,URINE 0-5 /HPF (0-5); SQUAMOUS EPITHELIAL CELL,UR RARE Squamous (<= Few); WBC,URINE 0-3 /HPF (0-5)
[2024-03-02] MEDS: PHENAZOPYRIDINE 100 MG TABLET PO STA (20:14)
[2024-03-02] MEDS: NITROFURANTOIN MACRO 100 MG CAPSULE PO STA (20:14)
== END 2024-03-02 20:17 | disposition home or self-care (01) ==
LOC: ED 19:23
DX: N30.90 Cystitis, unspecified without hematuria (principal)
CPT/HCPCS: 81001; 87086; 99283; A9270; 81003